=== PATIENT | male | born 1945 | race Caucasian/White ===

== ENCOUNTER → 2016-04-08 | Outpatient (CLI) | payer OTHER | LOC: FIMAGING 15:44 | PROVIDERS: ATTEND Neurological Surgery | DX: M50.31 Other cervical disc degeneration, high cervical region (principal); M50.321 Other cervical disc degeneration at C4-C5 level; M50.322 Other cervical disc degeneration at C5-C6 level; M50.323 Other cervical disc degeneration at C6-C7 level; M50.33 Other cervical disc degeneration, cervicothoracic region; M51.34 Other intervertebral disc degeneration, thoracic region; M43.12 Spondylolisthesis, cervical region; M99.71 Connective tissue and disc stenosis of intervertebral foramina of cervical region; M48.02 Spinal stenosis, cervical region; G95.29 Other cord compression; M12.88 Other specific arthropathies, not elsewhere classified, other specified site ==

== ENCOUNTER → 2016-04-14 | Outpatient (CLI) | payer OTHER | LOC: FIMAGING 13:20 | PROVIDERS: ATTEND Neurological Surgery | DX: M51.34 Other intervertebral disc degeneration, thoracic region (principal); M51.36 Other intervertebral disc degeneration, lumbar region; M46.96 Unspecified inflammatory spondylopathy, lumbar region; M48.06 Spinal stenosis, lumbar region ==

== ENCOUNTER 2016-08-24 11:45 | Inpatient (IN) | payer OTHER ==
[2016-09-09] MEDS ORDERED: BUPIVACAINE/EPI 0.25% 30 ML SDV ONE (10:14)
[2016-09-09] MEDS ORDERED: BACITRACIN 50,000 UNITS/10 ML SYR IRR ONE (10:16)
[2016-09-09] MEDS ORDERED: THROMBIN (BOVINE) 5,000 UNIT VIAL TP ONE (10:16)
--- NOTE | 2016-09-09 11:35 | PDHPUP ---
History & Physical Update H&P update statement: This history and physical update is based on an assessment of the patient which was completed after admission or registration (within 24 hours), but prior to the surgery/procedure. H&P update: H&P reviewed & patient examined, no change in patient's condition since H&P completed
[2016-09-09] MEDS ORDERED: GABAPENTIN 300 MG CAP PO ONE (11:39)
[2016-09-09] MEDS ORDERED: DEXAMETHASONE 10 MG/ML VIAL IVP ONE (11:39)
[2016-09-09] MEDS ORDERED: ACETAMINOPHEN 500 MG TAB PO ONE (11:39)
[2016-09-09] MEDS ORDERED: REMIFENTANIL HCL 1 MG VIAL ONE ×3 (11:52→11:53)
[2016-09-09] MEDS ORDERED: fentaNYL 100 MCG/2 ML INJ ONE ×3 (11:53→16:07)
[2016-09-09] MEDS ORDERED: PROPOFOL/EMULSION 500 MG/50 ML BOTTLE IV ONE (11:53)
[2016-09-09] MEDS ORDERED: VANCOMYCIN HCL/NORMAL SALINE 250 ML IV ONE (12:17)
[2016-09-09] MEDS ORDERED: MIDAZOLAM 2 MG/2 ML VIAL IVP ONE (13:08)
--- NOTE | 2016-09-09 13:40 | PDANEPAE ---
ANE History of Present Illness Patient presents for posterior cervical fusion ANE Past Medical History - Cardiovascular History Hx Hypertension: Yes Hx Arrhythmias: Yes Hx Chest Pain: No Hx Coronary Artery / Peripheral Vascular Disease: No Hx CHF / Valvular Disease: No Hx Palpitations: No Cardiovascular History Comment: pcp monitors bp medications. bp running low recently he will f/u with pcp this week. mitral regurgition. bradycardia. hx of pac's and recently was taken off of antiarrhythmics - Pulmonary History Hx COPD: No Hx Asthma/Reactive Airway Disease: No Hx Recent Upper Respiratory Infection: No Hx Oxygen in Use at Home: No Hx Sleep Apnea: Yes Sleep Apnea Screening Result - Last Documented: Positive Pulmonary History Comment: thomas positive- doesn't use cpap or o2 - Neurologic History Hx Cerebrovascular Accident: No Hx Seizures: No Hx Dementia: No - Endocrine History Hx Diabetes: No - Renal History Hx Renal Disorders: Yes Renal History Comment: bph takes flomax. recent hx of poss prostatitis - Liver History Hx Hepatic Disorders: No - Neurological & Psychiatric Hx Hx Neurological and Psychiatric Disorders: No - Cancer History Hx Cancer: No - Congenital Disorder History Hx Congenital Disorders: No - GI History Hx Gastrointestinal Disorders: Yes Gastrointestinal History Comment: gerd- on famotidine. sleeps with hob slightly elevated - Other Health History Other Health History: arthritic to right thumb- lots of pain. osteoarthritis. retired vet - Chronic Pain History Chronic Pain: Yes (right thumb, lumbar back, bilateral knees) - Surgical History Prior Surgeries: left hip replacement 11/2005. left hand surgery 2005. right foot 2nd and 3rd digit surgeries 2005. . . ANE Review of Systems - Exercise capacity Exercise capacity: >=4 METS METS (RN): 4 METS ANE Patient History - Allergies Allergies/Adverse Reactions: amoxicillin Allergy (Verified 08/11/16 11:45) Rash bupivacaine [From Marcaine] Allergy (Verified 08/11/16 11:45) Other-Enter Comments Cephalosporins Allergy (Verified 08/11/16 11:45) Rash codeine Allergy (Verified 08/11/16 11:45) Other-Enter Comments Penicillins Allergy (Verified 09/09/16 11:45) Rash Sulfa (Sulfonamide Antibiotics) Allergy (Verified 09/09/16 11:45) Rash Tetracyclines Allergy (Verified 08/11/16 11:45) Rash - Home Medications Home medications: home medication list seen and reviewed Home Medications: ALPRAZolam 0.25 mg PO PRN PRN 08/11/16 [Last Taken Unknown] ALPRAZolam 0.5 mg PO HS 08/11/16 [Last Taken Unknown] Aspirin 81mg (*) PO HS 08/11/16 [Last Taken Unknown] Atorvastatin Calcium 40 mg PO HS 08/11/16 [Last Taken Unknown] Famotidine 20 mg PO DAILY 08/11/16 [Last Taken Unknown] Finasteride 5 mg PO DAILY 08/11/16 [Last Taken Unknown] Herbals/Supplements -Info Only 08/11/16 [Last Taken Unknown] celeCOXIB 200 mg PO DAILY 08/11/16 [Last Taken Unknown] CALCITRIOL 09/02/16 [Last Taken Unknown] - NPO status NPO Since - Liquids (Date): 09/08/16 NPO Since - Liquids (Time): 03:35 NPO Since - Solids (Date): 09/08/16 NPO Since - Solids (Time): 21:00 - Smoking Hx Smoking Status: Never smoked - Family Anes Hx Family Hx Anesthesia Complications: none ANE Labs/Vital Signs - Vital Signs Blood Pressure: 123/74 Heart Rate: 60 Respiratory Rate: 16 O2 Sat (%): 94 Height: 168.91 cm Weight: 74.843 kg ANE Physical Exam - Airway Neck exam: FROM Mallampati Score: Class 2 Mouth exam: normal dental/mouth exam - Pulmonary Pulmonary: no respiratory distress - Cardiovascular Cardiovascular: regular rate and rhythym - ASA Status ASA Status: II ANE Anesthesia Plan Anesthesia Plan: general endotracheal anesthesia (RBA discussed)
[2016-09-09] MEDS ORDERED: PROPOFOL 200 MG/20 ML VIAL ONE (14:03)
[2016-09-09] MEDS ORDERED: ROCURONIUM 50 MG/5 ML VIAL ONE (14:15)
[2016-09-09] MEDS ORDERED: LIDOCAINE 2% 5 ML SDV ONE (14:15)
[2016-09-09] MEDS ORDERED: ONDANSETRON 4 MG/2 ML VIAL ONE (14:15)
[2016-09-09] MEDS ORDERED: SUGAMMADEX SODIUM 200 MG/2 ML VIAL IVP ONE (14:40)
[2016-09-09] MEDS ORDERED: NALOXONE HCL 0.4 MG/ML INJ IVP PRN ×2 (15:39→15:52)
[2016-09-09] MEDS ORDERED: LR 500 ML IV PRN (15:39)
[2016-09-09] MEDS ORDERED: ONDANSETRON 4 MG/2 ML VIAL IVP PRN ×2 (15:39→15:52)
[2016-09-09] MEDS ORDERED: diphenhydrAMINE 25 MG CAP PO PRN (15:52)
[2016-09-09] MEDS ORDERED: ONDANSETRON DISINTEGRATING 4 MG TAB PO PRN (15:52)
[2016-09-09] MEDS ORDERED: oxyCODONE IR 5 MG TAB PO PRN (15:52)
[2016-09-09] MEDS ORDERED: MAGNESIUM HYDROXIDE 30 ML UDCUP PO PRN (15:52)
[2016-09-09] MEDS ORDERED: LACTULOSE 20 GM/30 ML UDCUP PO PRN (15:52)
[2016-09-09] MEDS ORDERED: BISACODYL 10 MG SUPP PR PRN (15:52)
[2016-09-09] MEDS ORDERED: HYDROCODONE/APAP 5/325 TAB PO PRN (15:52)
[2016-09-09] MEDS ORDERED: HYDROmorphONE/DILAUDID 6 MG/30 ML PCA IV PRN (15:52)
--- NOTE | 2016-09-09 15:58 | SOAPPROG ---
SOAP Progress Note Assessment/Plan: Assessment: 71 yo sp C4-6 laminoplasty Plan: stable soft collar MADELAINE x 1 PT/OT lovenx POD #3 please call with neuro changes 09/09/16 15:57 Subjective: + neck pain, no arm pain. Objective: Vital Signs Temp Pulse Resp BP Pulse Ox 36.5 C 60 16 123/74 H 94 09/09/16 11:41 09/09/16 13:40 09/09/16 13:40 09/09/16 13:40 09/09/16 13:40 Awake, alert PERRL, No facial droop 5/5 + light touch ICD10 Worksheet Patient Problems: Problems Problem Status Onset Cervical stenosis of spine Acute - ICD10 Problem Qualifiers (1) Cervical stenosis of spine
--- NOTE | 2016-09-09 16:04 | POSTANESTH ---
Post Anesthetic Evaluation Cardiovascular Status: Normal, Stable Respiratory Status: Normal, Stable Level of Consciousness/Mental Status: Can Participate in Eval, Alert and Oriented, Mildly Sleepy, Arousable Pain Control: Adequate, Prn Tx Ordered Nausea/Vomiting Control: Adequate, Prn Tx Ordered Complications Possibly Related to Anesthesia: None Noted
--- NOTE | 2016-09-09 16:06 | GOP ---
[f rep st] OPERATIVE REPORT DATE OF OPERATION: 09/09/2016 SURGEON: Gilberto Allen MD NEUROSURGEON: Gilberto Allen MD. MEDICAL LABORATORY ASSISTANT: GEOVANNA Johnson. ANESTHESIA: General endotracheal. 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 Progressive cervical spondylitic myelopathy. POSTOPERATIVE DIAGNOSIS: C4-5 and C5-6 severe degenerative joint disease and spinal stenosis with s dianne cord compression. Progressive cervical spondylitic myelopathy. PROCEDURE PERFORMED: C4, C5, and C6 laminoplasty procedure with the Medtronic Centerpiece system an d 10 mm lateral hole plates with three 8 mm allografts and 2.6 x 5 mm screws. FINDINGS: ESTIMATED BLOOD LOSS: Trace. INDICATIONS: The patient is a 71-year-old man with multilevel cervical spondylosis and stenosis wit h spinal cord compression who presents for a C4 through 6 laminoplasty procedure instead of an anter ior cervical diskectomy and fusion versus laminectomy. DESCRIPTION OF PROCEDURE: After informed consent was obtained, the patient was taken to the operati ng room, placed in the prone position with the head in the [place] head batcher. The posterior cerv ical region was prepped and draped in a sterile fashion. After fluoroscopic localization of the cor rect levels, the subcutaneous and intramuscular tissues were infiltrated with local anesthesia. A m idline linear incision was then created from approximately C4 through C6. This was carried down to the fascial layer, which was incised using the monopolar electrocautery and carried in a subperioste al plane along the spinous processes and laminae bilaterally. Intraoperative fluoroscopy was again utilized to verify the correct levels. Following this, a trough was drilled bilaterally between the lamina and the lateral masses. This was drilled all the way through bicortical on the left and onl y unicortical through the cancellous bone on the right so that the right side acted as a hinge. Eac h individual level was carefully angled up and laterally and the left-sided remaining lamina trimmed up with a 2 mm Kerrison rongeur. The Medtronic Centerpiece system with 8 mm bones and 10 mm latera l hole plates were then placed and secured in a standard fashion with 2.6 x 5 mm screws. Following confirmation of good positioning by fluoroscopy, the wound was copiously irrigated with antibiotic i rrigation and meticulous hemostasis was achieved. A drain was then placed. The wound was closed in a layered fashion using interrupted Vicryl suture followed by Steri-Strips on the skin. COMPLICATION: None. DISPOSITION: The patient is currently in the process of being repositioned for extubation. /[id number]/MODL
[2016-09-09] MEDS: fentaNYL 100 MCG/2 ML INJ IVP PRN ×2 (16:08→16:15)
[2016-09-09] MEDS ORDERED: HYDROmorphONE/DILAUDID 1 MG/ML SYR ONE (16:15)
[2016-09-09] MEDS: HYDROmorphONE/DILAUDID 1 MG/ML SYR IVP PRN ×4 (16:17→16:47)
[2016-09-09] MEDS: POLYETHYLENE GLYCOL 3350 17 GM PKT PO SCH ×2 (17:15→21:48)
[2016-09-09] MEDS: NS 1,000 ML IV SCH (17:40)
[2016-09-09] MEDS ORDERED: [UNRECOGNIZED DRUG - REMARK] PO PRN (18:40)
[2016-09-09] MEDS ORDERED: ALPRAZolam 0.25 MG TAB PO PRN (18:40)
[2016-09-09] MEDS ORDERED: FAMOTIDINE 20 MG TAB PO SCH (21:00)
[2016-09-09] MEDS: ALPRAZolam 0.25 MG TAB PO SCH (21:47)
[2016-09-09] MEDS: SENNOSIDES/DOCUSATE SODIUM TAB PO SCH (21:47)
[2016-09-09] MEDS: ACETAMINOPHEN 500 MG TAB PO SCH (21:47)
[2016-09-10] MEDS ORDERED: VANCOMYCIN HCL/NORMAL SALINE 250 ML IV ONE (01:00)
[2016-09-10] MEDS: NS 1,000 ML IV SCH (04:25)
[2016-09-10] MEDS: ACETAMINOPHEN 500 MG TAB PO SCH ×3 (05:19→21:23)
--- NOTE | 2016-09-10 07:41 | NEUSURGPN ---
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 No UE symptoms. Objective: Awake. Alert. PERRL. EOMI Facial expression symmetrical Muscle strength full at 5/5 Sensation intact - Physician Discussed Patient with : Alej[facility] Neurosurgery Physical Exam - Vitals, I&O, Labs I and O 09/09/16 09/10/16 09/11/16 05:59 05:59 05:59 Intake Total 4225 Output Total 195 Balance 4030 Weight 74.843 kg Intake: Oral (ml) 1050 IV Intake (ml) 1600 IV Infused (ml) 1575 Ns 1,000 ml @ 75 mls/hr 1300 IV CONT MARY Rx#: [id number] Vancomycin HCl/Normal 275 Saline 250 ml @ 250 mls/ hr IV ONCE ONE Rx#: [id number] Output: Urine (ml) 100 Urinal 100 MADELAINE Drain Output (ml) 95 #1 Posterior Neck 95 Vital Signs Temp Pulse Resp BP Pulse Ox 36.9 C 63 16 108/67 98 09/10/16 04:00 09/10/16 04:00 09/10/16 04:00 09/10/16 04:00 09/10/16 04:00 ICD10 Worksheet Patient Problems: Problems Problem Status Onset Cervical stenosis of spine Acute
[2016-09-10] MEDS: SENNOSIDES/DOCUSATE SODIUM TAB PO SCH ×2 (08:40→19:38)
[2016-09-10] MEDS: FAMOTIDINE 20 MG TAB PO SCH (08:41)
[2016-09-10] MEDS: FINASTERIDE 5 MG TAB PO SCH (08:41)
[2016-09-10] MEDS: ATORVASTATIN CALCIUM 40 MG TAB PO SCH (08:41)
[2016-09-10] MEDS: POLYETHYLENE GLYCOL 3350 17 GM PKT PO SCH ×3 (08:42→19:40)
[2016-09-10] MEDS: METHOCARBAMOL 750 MG TAB PO PRN ×3 (08:47→19:38)
[2016-09-10] MEDS: HYDROCODONE/APAP 10/325 TAB PO PRN ×2 (15:12→19:38)
[2016-09-10] MEDS: ALPRAZolam 0.25 MG TAB PO SCH (19:40)
[2016-09-11] MEDS: METHOCARBAMOL 750 MG TAB PO PRN ×2 (01:28→07:59)
[2016-09-11] MEDS: HYDROCODONE/APAP 10/325 TAB PO PRN ×7 (01:28→23:59)
[2016-09-11] MEDS: ACETAMINOPHEN 500 MG TAB PO SCH ×3 (05:58→21:45)
[2016-09-11] MEDS: SENNOSIDES/DOCUSATE SODIUM TAB PO SCH ×2 (07:56→21:45)
[2016-09-11] MEDS: FINASTERIDE 5 MG TAB PO SCH (07:57)
[2016-09-11] MEDS: ATORVASTATIN CALCIUM 40 MG TAB PO SCH (07:57)
[2016-09-11] MEDS: FAMOTIDINE 20 MG TAB PO SCH (08:00)
[2016-09-11] MEDS: POLYETHYLENE GLYCOL 3350 17 GM PKT PO SCH ×3 (08:13→21:45)
[2016-09-11] MEDS ORDERED: HYDROCODONE/APAP 5/325 TAB PO PRN (08:45)
--- NOTE | 2016-09-11 09:00 | NEUSURGPN ---
Date of Surgery: 09/10/16 Post Op Day: 1 Assessment/Plan: 71 yo male s/p C4-6 laminoplasty - neuro stable - pain control, adjusting medications today to help with pain control - hard collar for 1 month then soft collar for 1 month - PT/OT - DC MADELAINE drain today - Probable discharge home tomorrow pending pain control today - please contact neurosurgery with any changes in neuro status/exam Subjective: Patient having expected posterior neck pain Objective: Awake. Alert. PERRL. EOMI Facial expression symmetrical Muscle strength full at 5/5 Sensation intact Dressing CDI MADELAINE in place Neuro Check Frequency: per routine Urinary Catheter in Place: No - Physician Discussed Patient with : Alejandro Neurosurgery Physical Exam - Vitals, I&O, Labs I and O 09/10/16 09/11/16 09/12/16 05:59 05:59 05:59 Intake Total 4225 500 Output Total 195 1550 600 Balance 4030 -1050 -600 Weight 74.843 kg Intake: Oral (ml) 1050 500 IV Intake (ml) 1600 IV Infused (ml) 1575 Ns 1,000 ml @ 75 mls/hr 1300 IV CONT MARY Rx#: [id number] Vancomycin HCl/Normal 275 Saline 250 ml @ 250 mls/ hr IV ONCE ONE Rx#: [id number] Output: Urine (ml) 100 1500 600 Urinal 100 1500 600 MADELAINE Drain Output (ml) 95 50 #1 Posterior Neck 95 50 Other: Bladder Scan Volume (ml) Urinal 233 Vital Signs Temp Pulse Resp BP Pulse Ox 36.6 C 61 16 130/74 H 91 L 09/11/16 07:45 09/11/16 07:45 09/11/16 07:45 09/11/16 07:45 09/11/16 07:45 ICD10 Worksheet Patient Problems: Problems Problem Status Onset Cervical stenosis of spine Acute
[2016-09-11] MEDS: HYDROmorphONE/DILAUDID 2 MG TAB PO PRN ×2 (11:56→13:09)
[2016-09-11] MEDS: METHOCARBAMOL 750 MG TAB PO SCH ×3 (11:57→23:59)
[2016-09-11] MEDS: ALPRAZolam 0.25 MG TAB PO SCH (21:45)
[2016-09-12] MEDS: HYDROCODONE/APAP 10/325 TAB PO PRN ×7 (03:37→23:35)
[2016-09-12] MEDS: METHOCARBAMOL 750 MG TAB PO SCH ×4 (06:03→23:35)
[2016-09-12] MEDS: ACETAMINOPHEN 500 MG TAB PO SCH ×3 (06:03→21:17)
[2016-09-12] MEDS: FAMOTIDINE 20 MG TAB PO SCH (08:16)
[2016-09-12] MEDS: ATORVASTATIN CALCIUM 40 MG TAB PO SCH (08:16)
[2016-09-12] MEDS: SENNOSIDES/DOCUSATE SODIUM TAB PO SCH ×2 (08:16→21:19)
[2016-09-12] MEDS: FINASTERIDE 5 MG TAB PO SCH (08:16)
[2016-09-12] MEDS: ENOXAPARIN 40 MG/0.4 ML SYR SC SCH (08:17)
[2016-09-12] MEDS: POLYETHYLENE GLYCOL 3350 17 GM PKT PO SCH ×3 (08:17→21:18)
--- NOTE | 2016-09-12 08:30 | NEUSURGPN ---
Date of Surgery: 09/09/16 Post Op Day: 3 Assessment/Plan: Assessment: 71 yo male s/p C4-6 laminoplasty POD # 3 Plan: -neuro stable -pain control-better today but still with neck pain that is worse at the end of the day. Will add gabapentin today to see if this helps him -hard collar for 1 month then soft collar for [address] Bolton -PT/OT-CPM -MADELAINE drain removed already -Probable discharge home tomorrow pending pain control today -please contact neurosurgery with any changes in neuro status/exam -pt understands and agrees Subjective: No new complaints or concerns. No f/c/n/v/d. No pugh/cp/sob/abd or gu complaints Objective: Awake. Alert. PERRLA. EOMI Facial expression symmetrical Muscle strength full at 5/5 Sensation intact Dressing CDI Neuro Check Frequency: per routine Urinary Catheter in Place: No - Physician Discussed Patient with : Alejandro Neurosurgery Physical Exam - Vitals, I&O, Labs I and O 09/11/16 09/12/16 09/13/16 05:59 05:59 05:59 Intake Total 500 400 Output Total 1550 1950 475 Balance -1050 -1950 -75 Intake: Oral (ml) 500 400 Output: Urine (ml) 1500 1900 475 Urinal 1500 1900 475 MADELAINE Drain Output (ml) 50 50 #1 Posterior Neck 50 50 Other: Intake Quantity Yes Sufficient Bladder Scan Volume (ml) Urinal 233 Vital Signs Temp Pulse Resp BP Pulse Ox 37.2 C 65 12 130/85 H 94 09/12/16 07:41 09/12/16 07:41 09/12/16 07:41 09/12/16 07:41 09/12/16 07:41 ICD10 Worksheet Patient Problems: Problems Problem Status Onset Cervical stenosis of spine Acute
[2016-09-12] MEDS: GABAPENTIN 300 MG CAP PO SCH ×3 (09:45→21:18)
[2016-09-12] MEDS: ALPRAZolam 0.25 MG TAB PO SCH ×2 (21:18→23:36)
[2016-09-12 23:33] VITALS: RESP 16
[2016-09-13] MEDS: HYDROCODONE/APAP 10/325 TAB PO PRN ×5 (04:24→22:01)
[2016-09-13] MEDS: METHOCARBAMOL 750 MG TAB PO SCH ×2 (05:45→13:34)
[2016-09-13] MEDS: ACETAMINOPHEN 500 MG TAB PO SCH ×3 (05:45→21:04)
[2016-09-13] MEDS: ATORVASTATIN CALCIUM 40 MG TAB PO SCH (08:39)
[2016-09-13] MEDS: GABAPENTIN 300 MG CAP PO SCH ×3 (08:39→21:01)
[2016-09-13] MEDS: FAMOTIDINE 20 MG TAB PO SCH (08:39)
[2016-09-13] MEDS: ENOXAPARIN 40 MG/0.4 ML SYR SC SCH (08:39)
[2016-09-13] MEDS: FINASTERIDE 5 MG TAB PO SCH (08:39)
[2016-09-13] MEDS: POLYETHYLENE GLYCOL 3350 17 GM PKT PO SCH ×3 (08:42→23:06)
[2016-09-13] MEDS: SENNOSIDES/DOCUSATE SODIUM TAB PO SCH ×2 (08:43→21:00)
--- NOTE | 2016-09-13 12:05 | SOAPPROG ---
SOAP Progress Note Assessment/Plan: Assessment: 71 yo POD #4 C4-6 laminoplasty Plan: stable hard collar for now will try flexeril for muscle spasms PT/OT lovenx POD #3 please call with neuro changes dc home when pain improved discussed with Dr Bolton 09/09/16 15:57 09/13/16 12:03 Subjective: continued neck pain, no arm pain, no weakness Objective: Vital Signs Temp Pulse Resp BP Pulse Ox 37.0 C 63 16 131/80 H 94 09/13/16 08:00 09/13/16 08:00 09/13/16 08:00 09/13/16 08:00 09/13/16 08:00 09/12/16 09/13/16 09/14/16 05:59 05:59 05:59 Intake Total 1400 Output Total 1950 1400 Balance -1950 0 AAOx4, +FC PERRL, EOMI, no facial droop 5/5 + light touch C/D/I ICD10 Worksheet Patient Problems: Problems Problem Status Onset Cervical stenosis of spine Acute - ICD10 Problem Qualifiers (1) Cervical stenosis of spine
[2016-09-13] MEDS: CYCLOBENZAPRINE 10 MG TAB PO SCH ×2 (17:13→21:02)
[2016-09-13] MEDS: ALPRAZolam 0.25 MG TAB PO SCH (23:21)
[2016-09-14] MEDS: ACETAMINOPHEN 500 MG TAB PO SCH (04:13)
[2016-09-14] MEDS: HYDROCODONE/APAP 10/325 TAB PO PRN ×3 (04:16→13:06)
[2016-09-14] MEDS: CYCLOBENZAPRINE 10 MG TAB PO SCH ×2 (05:32→13:58)
[2016-09-14 08:20] VITALS: BP 122/77; PULSE 62; TEMP 98; O2SAT 94
[2016-09-14] MEDS: GABAPENTIN 300 MG CAP PO SCH (08:20)
[2016-09-14] MEDS: FINASTERIDE 5 MG TAB PO SCH (08:20)
[2016-09-14] MEDS: FAMOTIDINE 20 MG TAB PO SCH (08:20)
[2016-09-14] MEDS: ATORVASTATIN CALCIUM 40 MG TAB PO SCH (08:20)
[2016-09-14] MEDS: SENNOSIDES/DOCUSATE SODIUM TAB PO SCH (08:20)
[2016-09-14] MEDS: POLYETHYLENE GLYCOL 3350 17 GM PKT PO SCH ×2 (08:21→13:06)
[2016-09-14] MEDS: ENOXAPARIN 40 MG/0.4 ML SYR SC SCH (08:21)
--- NOTE | 2016-09-14 08:28 | NEUSURGPN ---
Date of Surgery: 09/09/16 Post Op Day: 5 Assessment/Plan: 71 yo male s/p C4-6 laminoplasty stable hard collar for now PT/OT Discharge home today, scripts for Flexeril and [place] on chart discussed with Dr Bolton Subjective: Patient ready to go home today Objective: PERRL, EOMI, no facial droop 5/5 BUE + light touch C/D/I Neuro Check Frequency: per routine Urinary Catheter in Place: No - Physician Discussed Patient with DrWoody: Alejandro Neurosurgery Physical Exam - Vitals, I&O, Labs I and O 09/13/16 09/14/16 09/15/16 05:59 05:59 05:59 Intake Total 1400 350 Output Total 1400 Balance 0 350 Intake: Oral (ml) 1400 350 Output: Urine (ml) 1400 Urinal 1400 Other: Intake Quantity Yes Sufficient Number of Voids Urinal 1 1 Vital Signs Temp Pulse Resp BP Pulse Ox 36.6 C 62 16 122/77 H 94 09/14/16 08:18 09/14/16 08:18 09/14/16 08:18 09/14/16 08:18 09/14/16 08:18 ICD10 Worksheet Patient Problems: Problems Problem Status Onset Cervical stenosis of spine Acute
== END 2016-09-14 15:03 | disposition home or self-care (01) | DRG 519 ==
LOC: F3N 09-09 10:55 → OBSVTOIN 09-09 16:30 → F3N 09-09 17:29
PROVIDERS: ADMIT Neurological Surgery; ATTEND Neurological Surgery
PROC: 00NW0ZZ Release Cervical Spinal Cord, Open Approach (ICD-10-PCS; principal; 2016-09-09 13:00)
DX: M50.321 Other cervical disc degeneration at C4-C5 level (principal); M47.12 Other spondylosis with myelopathy, cervical region; M50.322 Other cervical disc degeneration at C5-C6 level; I10 Essential (primary) hypertension; G47.33 Obstructive sleep apnea (adult) (pediatric); N40.0 Benign prostatic hyperplasia without lower urinary tract symptoms; K21.9 Gastro-esophageal reflux disease without esophagitis; G89.29 Other chronic pain; Z96.642 Presence of left artificial hip joint
CPT/HCPCS: 97161-GP; 97165-GO; 97530-GO; 97530-GP; 97535-GO; C1713; G8978-GP-CI; G8979-GP-CI; G8987-GO-CI; G8987-GO-CK; G8988-GO-CI; G8989-GO-CI; J1100; J1170; J1650; J2250; J2405; J2704; J3010; J3370

== ENCOUNTER → 2016-11-23 | Outpatient (CLI) | payer OTHER | LOC: FIMAGING 10:22 | PROVIDERS: ATTEND Physician Assistant Surgical | DX: Z47.89 Encounter for other orthopedic aftercare (principal); M48.02 Spinal stenosis, cervical region ==

== ENCOUNTER → 2016-12-08 | Outpatient (CLI) | payer OTHER | LOC: FIMAGING 09:50 | PROVIDERS: ATTEND Neurological Surgery | DX: M51.34 Other intervertebral disc degeneration, thoracic region (principal); M48.05 Spinal stenosis, thoracolumbar region; M46.93 Unspecified inflammatory spondylopathy, cervicothoracic region; M46.92 Unspecified inflammatory spondylopathy, cervical region; M50.321 Other cervical disc degeneration at C4-C5 level; M48.02 Spinal stenosis, cervical region; Z98.1 Arthrodesis status ==

== ENCOUNTER → 2017-01-28 | Day surgery (SDC) | payer OTHER ==
--- NOTE | 2017-01-28 22:58 | GPN ---
[f rep st] PROCEDURE NOTE DATE OF PROCEDURE: 01/28/2017 PREOPERATIVE DIAGNOSIS: Elevated prostatic-specific antigen. POSTOPERATIVE DIAGNOSIS: Elevated prostatic-specific antigen. PROCEDURE: Transrectal ultrasound-guided biopsies of the prostate. INDICATIONS: The patient is a 71-year-old gentleman with history of elevated PSA. His most recent l evel is 2.04, but the patient has significant concerns based on family history. After discussing opt ions, he elected to undergo biopsies of the prostate. DESCRIPTION OF PROCEDURE: With the patient in the left lateral decubitus position, after informed co nsent was obtained, the transrectal ultrasound probe was inserted into the bladder. Images were obta ined, and measurements were calculated. 10 mL of 1% lidocaine were used to infiltrate the periprosth etic tissue. A total of 12 cores were obtained at the right and left bases, mid, and apical regions. The probe was removed. The patient tolerated the procedure well. He will follow up in 1 week for the biopsies. There were no complications or measurable blood loss. /[id number]/MODL
== END | disposition home or self-care (01) ==
LOC: BMCIMAGING 07:32
PROVIDERS: ATTEND Urology
PROC: 0VB03ZX Excision of Prostate, Percutaneous Approach, Diagnostic (ICD-10-PCS; principal; 2017-01-28)
DX: R97.20 Elevated prostate specific antigen [PSA] (principal)